=== PATIENT | female | born 1945 | race Caucasian/White ===

== ENCOUNTER 2017-08-04 09:16 | Day surgery (SDC) | payer MEDICARE ==
--- NOTE | 2017-08-04 11:21 | Operative Note ---
Upper GI Endoscopy Procedure date: 08/04/17 Date of : 47 Procedure:Upper GI Endoscopy Esophagogastroduodenoscopy with cold biopsies and TTS balloon dilation Indications: Mrs. March is a 72-year-old female with prior severe heartburn/reflux in October 2016. She did take 3 TUMS at that time without improvement. She had dyspepsia. She was treated for ulcers and treated for H. pylori and subsequent evaluation confirmed eradication. She has not had prior endoscopy. She continues to have some dysphagia with globus sensation. She has frequent clearance of the throat. She has always had chronic dyspepsia with some epigastric abdominal discomfort. She reports some belching and early satiety. Her bloating improved after treatment for H. pylori. She reports no nausea. She does have some postprandial bowel urgency but reports regular bowel function. She did have a colonoscopy done by Dr. Mario Kim in [place] 2 years ago which was normal. She has not had prior cardiac evaluation. Performing Provider: Qian Rios MD Referring Provider: Alva ORNELAS Sedation: Fentanyl 100 mg IV/Versed 7 mg IV Procedure: Prior to the procedure, a history and physical exam was performed, and patients medications and allergies were reviewed. The risks and benefits of the procedure and the sedation options and risks were discussed with the patient. All questions were answered and informed consent was obtained. The patient was brought to the procedure room. Patient identification and proposed procedure were verified by the physician and the nurse. The patient was placed in a left lateral decubitus position and the scope was passed under direct vision. Throughout the procedure, the patient's blood pressure, pulse, and oxygen saturations were monitored continuously. The endoscope was introduced through the mouth, and advanced to the second part of duodenum. The upper GI endoscopy was accomplished without difficulty. The patient tolerated the procedure well. Findings: The scope was passed directly into the upper esophagus and advanced to the third portion of the duodenum. The post bulbar duodenum and duodenal bulb were normal with normal mucosa and conniventes. The scope was withdrawn through a normal duodenal bulb and pylorus into the stomach. There was some mild linear erythema of the antrum and body of the stomach consistent with linear reactive gastritis. The remainder of the antrum, body and fundus of the stomach were grossly normal. Upon retroflexion there was a 3 cm medium sized hiatal hernia. 2 biopsies were taken in the antrum and along the lesser curvature for histology. The scope was then withdrawn into the esophagus. There was a single tongue of salmon-colored mucosa. Narrow band imaging was utilized and it looked as if there was some mild atypia with intestinal metaplasia. Directed biopsies were obtained. There was tertiary contractions of the esophagus and cricopharyngeal spasm. The entire esophagus was dilated to 60 Portuguese/20 mm with some resistance at the cricopharyngeus. Immediate complications: None EBL (ml): 0 Impression: 1. 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 Single salmon colored tongue of mucosa suggestive of short segment Streeter's esophagus 3. Medium-sized 3 cm hiatal hernia 4. Mild linear reactive gastritis Recommendations: I will follow-up the biopsies. I would recommend dietary measures, fiber bowel regimen and promotility therapy. We will discuss additional treatment options. at 1120
[2017-08-04 17:33] VITALS: BP 118/58
== END 2017-08-04 12:06 | disposition home or self-care (01) ==
LOC: SDC 09:16
PROVIDERS: Internal Medicine Gastroenterology
PROC: 0DB78ZX Excision of Stomach, Pylorus, Via Natural or Artificial Opening Endoscopic, Diagnostic (ICD-10-PCS; principal; 2017-08-04 11:00)
PROC: 0D758ZZ Dilation of Esophagus, Via Natural or Artificial Opening Endoscopic (ICD-10-PCS; principal; 2017-08-04 11:00)
DX: K30 Functional dyspepsia (principal); K21.9 Gastro-esophageal reflux disease without esophagitis; K44.9 Diaphragmatic hernia without obstruction or gangrene; K22.70 Barrett's esophagus without dysplasia; K29.60 Other gastritis without bleeding
CPT/HCPCS: C1726